=== PATIENT | male | born 1965 | race Caucasian/White ===

== ENCOUNTER 2016-11-13 17:06 | Emergency (ER) | payer OTHER | END 2016-11-13 18:16 | disposition home or self-care (01) | LOC: FER 17:06 | DX: J10.1 Influenza due to other identified influenza virus with other respiratory manifestations (principal); E11.9 Type 2 diabetes mellitus without complications; F17.210 Nicotine dependence, cigarettes, uncomplicated | CPT/HCPCS: 71020; 87450; 87804; 87899; 99283 ==